=== PATIENT | female | born 1950 | race Two or more races ===

== ENCOUNTER 2017-06-26 22:14 | Emergency (ER) | payer MEDICARE, MEDICAID ==
[~2017-06-26] VITALS: Ht 152.4 cm; Wt 62.6 kg
[2017-06-26] MEDS ORDERED: ECONAZOLE NITRATE 1% (23:01)
[2017-06-26] MEDS ORDERED: BYSTOLIC 5 MG (23:01)
[2017-06-26] MEDS ORDERED: LINZESS 290 MCG (23:01)
[2017-06-26] MEDS ORDERED: ANASTROZOLE 1 MG (23:01)
[2017-06-26] MEDS ORDERED: ASPIRIN EC 81 MG TABLET (23:02)
[2017-06-26] MEDS: BENZONATATE 100 MG CAPSULE PO ONE (23:37)
[2017-06-26 23:41] VITALS: BP 137/75
[2017-06-26] MEDS ORDERED: BENZONATATE 100 MG CAPSULE ONE (23:49)
== END 2017-06-26 23:41 | disposition home or self-care (01) ==
LOC: ER 22:15
DX: J20.9 Acute bronchitis, unspecified (principal); J04.0 Acute laryngitis; I10 Essential (primary) hypertension; Z79.82 Long term (current) use of aspirin; Z85.3 Personal history of malignant neoplasm of breast
CPT/HCPCS: A4663

== ENCOUNTER 2019-02-25 20:33 | Emergency (ER) | payer MEDICARE, MEDICAID ==
[~2019-02-25] VITALS: Ht 152.4 cm; Wt 64.4 kg
[~2019-02-25 20:33] MED LIST: ANASTROZOLE 1 MG; ASPIRIN EC 81 MG TABLET; BYSTOLIC 5 MG; ECONAZOLE NITRATE 1%; LINZESS 290 MCG
--- NOTE | 2019-02-25 20:45 | NUR ---
Patient ambulated with stable gait. Speech is clear, speaks in complete sentences. No neuro deficits. A/Ox3. Patient came for c/o insect bite on RLE. Respiratory even and unlabored, no cough no sob.
--- NOTE | 2019-02-25 20:50 | NUR ---
Patient discharged to home in stable conditon. Written and verbal after care instructions given. Patient verbalizes understanding of instructions. Patient ambulated with stable gait.
[2019-02-25 20:55] VITALS: BP 143/72
== END 2019-02-25 20:50 | disposition home or self-care (01) ==
LOC: ER 20:35
DX: S60.562A Insect bite (nonvenomous) of left hand, initial encounter (principal); S60.561A Insect bite (nonvenomous) of right hand, initial encounter; S80.862A Insect bite (nonvenomous), left lower leg, initial encounter; S80.861A Insect bite (nonvenomous), right lower leg, initial encounter; I10 Essential (primary) hypertension; Z79.82 Long term (current) use of aspirin; Z79.899 Other long term (current) drug therapy; W57.XXXA Bitten or stung by nonvenomous insect and other nonvenomous arthropods, initial encounter; Y93.89 Activity, other specified; Y92.89 Other specified places as the place of occurrence of the external cause; Y99.8 Other external cause status
CPT/HCPCS: A4663